=== PATIENT | male | born 1935 | race Caucasian/White ===

== ENCOUNTER → 2023-04-22 12:26 | Outpatient (REF) | payer OTHER, SELFPAY | LOC: RAD 12:26 | PROVIDERS: ATTENDING PHYSICIAN Internal Medicine | DX: M25.551 Pain in right hip (principal); W19.XXXA Unspecified fall, initial encounter; S70.01XA Contusion of right hip, initial encounter | CPT/HCPCS: 73502 ==

== ENCOUNTER → 2023-05-05 17:27 | Outpatient (REF) | payer OTHER, SELFPAY | LOC: RAD 17:27 | PROVIDERS: ATTENDING PHYSICIAN Physician Assistant | DX: M79.89 Other specified soft tissue disorders (principal); M79.605 Pain in left leg | CPT/HCPCS: 93971 ==

== ENCOUNTER → 2023-05-17 10:05 | Outpatient (REF) | payer OTHER, SELFPAY | LOC: RST 10:05 | PROVIDERS: ATTENDING PHYSICIAN Internal Medicine | DX: R13.10 Dysphagia, unspecified (principal) | CPT/HCPCS: 74230; 92611 ==

== ENCOUNTER 2023-05-23 16:21 | Emergency (ER) | payer OTHER, SELFPAY ==
[2023-05-23 16:33] VITALS: BP 155/82
[2023-05-23 16:50] LABS: Glucose - Point of Care 104 mg/dl (70-99)
[2023-05-23 16:51] VITALS: BMI 29.2
[2023-05-23 17:16] LABS: % Basophils 0.7 % (0-2); % Eosinophils 1.1 % (0-6); % Immature Granulocytes 0.2 % (0-0.5); % Monocytes 7.1 % (1.7-9.3); % Neutrophils 75.9 % (42.2-75.2); Absolute Basophils 0.1 10^3/uL (0-0.2); Absolute Eosinophils 0.1 10^3/uL (0-0.7); Absolute Lymphocytes 1.6 10^3/uL (1.2-3.4); Absolute Monocytes 0.8 10^3/uL (0.1-0.6); Absolute Neutrophils 8.2 10^3/uL (1.4-6.5); Hematocrit 44.1 % (39.0-52.0); Hemoglobin 14.9 g/dL (13.0-18.0); Mean Corp Hgb Conc. 33.8 g/dL (33.0-37.0); Mean Corpuscular Hgb 31.1 pg (27.0-31.0); Mean Corpuscular Volume 92.1 fL (80.0-94.0); Nucleated Red Blood Cells % 0 % (-); Red Blood Cell Count 4.79 10^6/uL (4.70-6.10); Red Cell Dist. Width 13.1 % (11.5-14.5); White Blood Cell Count 10.8 10^3/uL (4.8-10.8)
[2023-05-23 17:30] LABS: ALT (SGPT) 25 U/L (0-50); AST (SGOT) 34 U/L (17-59); Alkaline Phosphatase 100 U/L (38-126); Blood Urea Nitrogen 36 mg/dl (9-20); Calcium 10.2 mg/dl (8.4-10.2); Carbon Dioxide 25 mmol/L (22-30); Chloride 106 mmol/L (98-107); Estimated Creatinine Clearance 47 ml/min; Glucose 105 mg/dl (70-99); Potassium 4.5 mmol/L (3.5-5.1); Sodium 138 mmol/L (135-145); Total Bilirubin 1.4 mg/dl (0.2-1.3); Total Protein 7.6 g/dl (6.3-8.2); eGFR > 60.00
[2023-05-23 17:38] LABS: Troponin I 0.014 ng/ml
--- NOTE | 2023-05-23 18:00 | ED.CVA ---
History of Present Illness
General
Chief Complaint: CVA/TIA Symptoms
Source: patient
Exam Limitations: none
Time Seen by Provider: 05/23/23 16:46
Nursing documentation reviewed up to this point in time: agreed with
Onset of Stroke Symptoms
Onset of symptoms known: No
Time pt last seen normal is known: No
Travel History
Have you had any contact with someone who has COVID-19?: No
Do you have any symptoms of coronavirus? Fever > 100 degrees, chills, cough, shortness of breath, sore throat, loss of taste or smell, muscle aches, or headache?: No
History of Present Illness
History of Present Illness:
The patient is a pleasant 88-year-old man with a past medical history of CVA, hypertension hyperlipidemia who was at physical therapy earlier today undergoing cognitive and physical therapy, and felt lightheaded and slightly dizzy. Patient denies
chest pain or shortness of breath. He denies fever, sore throat and cough. Patient reports that he just feels emotionally sad over personal reasons but otherwise has no complaints. Patient's son is at the bedside and reports that he is currently
living with his father and admits that the patient has been having marital issues with his . The patient denies vision changes. He reports a mild headache but denies any significant headache. Son reports that the patient may not have eaten
prior to physical therapy.
Past History
Past History
ED Past Medical History: HTN and Other (Leukemia CML. Kidney stones)
ED Past Surgical History: Cholecystectomy, Orthopedic (bilateral knee and hip replacements.) and Other (hernia repair)
Social History
Tobacco: Non-smoker
Alcohol: None
Personal:
Living: with family
Review of Systems
Review of Systems
Allergies reviewed?: Yes
All Other Systems: ROS reviewed and negative except as documented in HPI and ROS
Constitutional: Reports no symptoms
EENT: Reports no symptoms
Respiratory: Reports no symptoms
Cardiac: Reports other (Lightheaded)
ABD/GI: Reports no symptoms
: Reports no symptoms
Musculoskeletal: Reports no symptoms
Skin: Reports no symptoms
Neurological: Reports dizzy
Endocrine: Reports no symptoms
Hematologic/Lymphatic: Reports no symptoms
Psychiatric: Reports no symptoms
Phy Exam
Physical Exam
Physical Exam:
Physical Exam
General: no apparent distress, not acutely ill. Patient is tearful but admits he is emotionally sad
Neck: supple. no meningeal signs. normal psoterior pharynx
Heart: s1/s2 regular rate and rhythm, no murmur. equal radial pulses.
Lungs: no acute respiratory distress. clear bilaterally
Abdomen: normal bowel sounds. not tender. no CVAT
Neuro: alert and orientedx3. no focal neurological deficits. 5 out of 5 strength in all extremities without drift. Normal [id number]. Cranial nerves equal and symmetric bilaterally. Extraocular muscles intact.
Visual farris intact. Speech sounds normal. Answers all questions appropriately. Sensation is equal bilaterally
Skin: no rash
Psychiatric: well kept. interactive and cooperative
Extremities: no edema. no calf tenderness. negative homans. good distal pulses
Course
Orders/Labs/Results
Orders:
Orders
05/23/23 17:01
Electrocardiogram (*1) Urgent
Reason for Study: Fatigue / Weakness
CT Head W/o Iv Contrast Urgent
Comment:
Reason For Exam: dizziness
EKG- Treatment ONCE
05/23/23 17:05
Complete Blood Count/With Diff Urgent
Comprehensive Metabolic Panel Urgent
Troponin I Urgent
05/23/23 17:59
0.9% Sodium Chloride 1000 ml [Nss] 1,000 ml IV BOLUS
Abnormal Lab Results
05/23/23 05/23/23
16:49 17:05
MCH 31.1 H pg
(27.0-31.0)
Absolute Neuts (auto) 8.2 H 10^3/uL
(1.4-6.5)
Absolute Monos (auto) 0.8 H 10^3/uL
(0.1-0.6)
Neutrophils % 75.9 H %
(42.2-75.2)
Lymphocytes % 15.0 L %
(20.5-51.1)
BUN 36 H mg/dl
(9-20)
Glucose 105 H mg/dl
(70-99)
Total Bilirubin 1.4 H mg/dl
(0.2-1.3)
POC Glucose 104 H mg/dl
(70-99)
05/23/23 17:05
05/23/23 17:05
Vital Signs
Initial and Last Documented VS:
Initial Vital Signs
Temp Pulse Resp BP Pulse Ox
98.7 F 68 18 155/82 99
05/23/23 16:33 05/23/23 16:33 05/23/23 16:33 05/23/23 16:33 05/23/23 16:33
Last Documented Vital Signs
Temp Pulse Resp BP Pulse Ox
98.7 F 65 17 147/80 98
05/23/23 16:33 05/23/23 19:54 05/23/23 19:54 05/23/23 19:54 05/23/23 18:03
MDM/Problems Addressed
Differential Diagnosis Includes:
Dehydration, hyponatremia, UTI, CVA
MDM/Problems Addressed:
Patient presents with acute lightheadedness and slight dizziness
Chronic conditions affecting care: HTN
Acute Exacerbation and/or Progression of Chronic Illness:
Patient has history of CVA and is making exacerbation of CVA symptoms
Acute Exacerbation and/or Progression of Chronic Illness: Other (CVA)
*Radiology
Radiology exam reviewed: radiology read reviewed
*Pulse Oximetry
Patient hypoxic: no
*EKG
Interpreted by ED Provider?: Yes
Interpretation: abnormal
Comparison EKG: no comparison EKG present
Rate: normal
Rhythm: sinus arrhythmia
[place]: left axis deviation
Interval: normal interval
QRS Pattern: normal QRS
Ischemia: non-specific ST changes
*Lead Burner Interpretation
Rate: normal
Interpretation: normal
Rhythm: sinus
*Critical Care Note
Total Time (30-74mins, 75-104mins- exclusive of procedures): Not Applicable
Data Reviewed
Review of Other/Old Records Reveals: Discharge Summary (Rehab discharge summary reviewed from 01/2023 when patient was admitted for stroke causing slurred speech and right facial weakness)
Source: patient and family (son)
Update Note
Update Note:
7:00 PM patient appears well and comfortable for hours. He has had a normal neurological exam therefore it is doubtful he had a stroke and his story is not particularly suspicious for for TIA. He has had no fever, chest pain or shortness of
breath. 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 Patient does have the emotional
support of his son who seems to care very much for him. Patient's BUN suggest dehydration. Patient getting IV fluids. Patient is very happy to go home, and after he gets the IV fluids, if he is able to walk steadily and feels at his baseline, he
can go home
ED Attending Note
-
Portions of this chart may have been created with voice recognition software.� Occasional wrong word or��sound alike� substitutions may have occurred due to the inherent limitations of voice recognition software.
Discharge Plan
Departure
Patient Disposition: Home (Routine Discharge)
Date of Disposition: 05/23/23
Time of Disposition: 19:24
Patient with high blood pressure during this ER visit?: Yes
Condition: Good
Covid-19: Not Applicable
Discharge Problem:
Acute dehydration
Instructions: Dehydration, Adult ED, BLOOD PRESSURE
Prescriptions:
No Action
atorvastatin 40 mg tablet
40 mg PO DAILY
hydrochlorothiazide 12.5 mg capsule
12.5 mg PO DAILY
aspirin 81 mg Tablet,Delayed Release (Dr/Ec)
81 mg PO DAILY 30 Days Qty: 30 0RF
allopurinol 300 mg Tablet
300 mg PO DAILY 30 Days Qty: 30 0RF
losartan 100 mg Tablet
100 mg PO DAILY 30 Days Qty: 30 0RF
Referrals:
Aric Patel MD [Family Provider] -
Interventions
Interventions:
*Risk Screen - Suicide Last Done: 05/23/23 16:51
*General Assessment Last Done: 05/23/23 16:51
*Neglect/Abuse Screening Last Done: 05/23/23 16:51
ED- Fall Risk Assessment Last Done: 05/23/23 20:11
*ED COVID-19 Vaccine History Last Done: 05/23/23 16:51
*Nursing Disposition Last Done: 05/23/23 20:11
ED- Pulmonary Assessment Last Done: 05/23/23 16:51
ED- Neurological Assessment Last Done: 05/23/23 16:51
ED- Cardiac Assessment Last Done: 05/23/23 16:51
ED Swallowing Screen Last Done: 05/23/23 17:00
Discharge Date and Time
Discharge Date/Time: 05/23/23 20:12
[2023-05-23 18:34] VITALS: BP 134/74
[2023-05-23] MEDS: NSS 1000 IV (18:35)
[2023-05-23 19:00] VITALS: BP 143/75
[2023-05-23 19:54] VITALS: BP 147/80
== END 2023-05-23 20:12 | disposition home or self-care (01) ==
LOC: EMR 16:21
PROVIDERS: EMERGENCY PHYSICIAN Emergency Medicine; FAMILY PHYSICIAN Internal Medicine
DX: E86.0 Dehydration (principal); I10 Essential (primary) hypertension; E78.5 Hyperlipidemia, unspecified
CPT/HCPCS: 99285; 96360; 70450; 80053; 82962; 84484; 85025; 93005; 97129; 97130; 97535

== ENCOUNTER 2023-05-27 12:59 | Outpatient (RCR) | payer OTHER, SELFPAY | END 2023-05-27 23:59 | disposition home or self-care (01) | LOC: RPT 12:59 | PROVIDERS: ATTENDING PHYSICIAN Internal Medicine | DX: I69.310 Attention and concentration deficit following cerebral infarction (principal); I63.9 Cerebral infarction, unspecified (principal); Z73.6 Limitation of activities due to disability; I69.319 Unspecified symptoms and signs involving cognitive functions following cerebral infarction; I69.311 Memory deficit following cerebral infarction; I69.318 Other symptoms and signs involving cognitive functions following cerebral infarction | CPT/HCPCS: 96125; 97110; 97112; 97129; 97130; 97163; 97167; 97530; 97535 ==

== ENCOUNTER 2023-06-28 10:14 | Outpatient (RCR) | payer OTHER, SELFPAY | END 2023-06-28 23:59 | disposition home or self-care (01) | LOC: RPT 10:14 | PROVIDERS: ATTENDING PHYSICIAN Internal Medicine | DX: I69.319 Unspecified symptoms and signs involving cognitive functions following cerebral infarction (principal); I69.310 Attention and concentration deficit following cerebral infarction; I69.311 Memory deficit following cerebral infarction; Z73.6 Limitation of activities due to disability | CPT/HCPCS: 97110; 97112; 97129; 97130; 97530; 97535 ==